=== PATIENT | male | born 1955 | race Caucasian/White ===

== ENCOUNTER → 2023-12-29 10:02 | Outpatient (CLI) | payer MEDICARE, SELFPAY ==
--- NOTE | 2023-12-29 10:07 | DI.NM.S_ITS ---
PROCEDURE: NM YANELIS PERF SPECT REST & STR Rest and exercise myocardial perfusion SPECT with gated imaging and ejection fraction RADIOPHARMACEUTICAL: 12.7 mCi Tc-99m sestamibi IV at rest and 24.2 mCi Tc-99m sestamibi IV at peak exercise. A [id number] was performed. INDICATIONS: CAD TECHNIQUE: Radiopharmaceutical was injected at peak stress test, and also at rest. SPECT images were obtained. SPECT myocardial perfusion images were displayed in short axis, horizontal long axis, and vertical long axis views. Gated images were reviewed using [employer] software. COMPARISON: None. CARDIAC STRESS: A standard Anthony treadmill exercise tolerance test was performed by the patient under the supervision of an attending staff. The patient exercised for 7 minutes and 31 seconds; 8.3 METS; functional aerobic impairment (NIHARIKA) is -5%. Hemodynamic data: There is normal blood pressure and heart rate response to exercise stress. Patient achieved 101% of maximum predicted heart rate at peak exercise. Maximum blood pressure 166/96. Symptoms: Patient denied chest pain during exercise. EKG: Rest ECG sinus rhythm, PVCs. Exercise ECG sinus tachycardia, no ST segment changes. PVCs returned in recovery. FINDINGS: Raw data: There is good myocardial labeling by radiotracer. No significant motion artifacts. Pxbo-ei-vlkai ratio is 0.35 (normal is less than 0.38 for sestamibi tracer, and less than 0.50 for thallium tracer). Left ventricle function: Gated images demonstrate normal left ventricle wall thickening. No segmental wall motion abnormality. No transient ischemic dilation; TID is 1.05 (normal less than 1.3). The left ventricle resting end-diastolic volume is 157 mL. Left ventricle stress ejection fraction is visually 45%; normal values are above 45%. Myocardial perfusion: There is normal distribution of activity in the left and right ventricular myocardium. No fixed or reversible perfusion defects. IMPRESSION: Low risk study. No evidence of exercise-induced ischemia on ECG or SPECT imaging. Increased calculated LVEDV with low normal function. Normal hemodynamic response. Good exercise capacity. Dictated by: Neena Wilkes D.O. on 12/29/2023 at 16:14 Approved by: Neena Wilkes D.O. on 12/29/2023 at 16:18
== END ==
PROVIDERS: PCP Family Medicine; Referring Provider Family Medicine; Visit Provider Family Medicine
DX: I25.10 Atherosclerotic heart disease of native coronary artery without angina pectoris (principal)
CPT/HCPCS: 78452; 93017; A9502